=== PATIENT | female | born 1965 | race Caucasian/White ===

== ENCOUNTER → 2016-11-22 | Outpatient (CLI) | payer OTHER ==
--- NOTE | 2016-11-22 14:41 | MM ---
Reason for exam: additional evaluation requested from prior study. Last mammogram was performed 1 year and 6 months ago. History: Patient is postmenopausal. Family history of breast cancer in aunt at age 67. Benign right mammotome panel of the right breast, September 09, 2006. Excisional biopsy of the left breast, 1979. Took hormonal contraceptives for 3 years beginning at age 18. Physical Findings: Nurse did not find any significant physical abnormalities on exam. MG Diagnostic Mammo w CAD LUISA Bilateral CC and MLO view(s) were taken. Prior study comparison: May 10, 2015, bilateral MG diagnostic mammo w CAD LUISA. February 11, 2012, bilateral digital screening mammo w/CAD. The breast tissue is heterogeneously dense. This may lower the sensitivity of mammography. Finding: There are stable diffuse/scattered calcifications. There is no discrete abnormality including area of concern. No significant changes in finding since May 10, 2015 and February 11, 2012. These results were verbally communicated with the patient and result sheet given to the patient on 11/22/16. ASSESSMENT: Benign, BI-RAD 2 RECOMMENDATION: Routine screening mammogram of both breasts in 1 year.
== END | disposition home or self-care (01) ==
LOC: RADMAMWWP 12:49
PROVIDERS: ATTEND Family Medicine
DX: R92.1 Mammographic calcification found on diagnostic imaging of breast (principal)

== ENCOUNTER 2017-12-26 17:11 | Emergency (ER) | payer BC, OTHER ==
[2017-12-26 17:42] VITALS: RESP 18
[2017-12-26] MEDS ORDERED: SODIUM CHLORIDE 0.9% 500 ML IV STA (17:55)
[2017-12-26 18:42] LABS: Basophils % (A) 1 %; Eosinophils # (A) 0.1 k/uL (0-0.7); Eosinophils % (A) 2 %; HCT 39.6 % (34.0-46.0); HGB 13.8 gm/dL (11.4-16.0); Lymphocytes # (A) 1.6 k/uL (1.0-4.8); Lymphocytes % (A) 30 %; MCH 33.4 pg (25.0-35.0); MCHC 34.8 g/dL (31.0-37.0); MCV 95.9 fL (80.0-100.0); Mean Platelet Volume 6.4; Monocytes # (A) 0.3 k/uL (0-1.0); Monocytes % (A) 7 %; Neutrophils # (A) 3.1 k/uL (1.3-7.7); Neutrophils % (A) 59 %; Platelet Count 321 k/uL (150-450); RBC 4.13 m/uL (3.80-5.40); RDW 12.8 % (11.5-15.5); WBC 5.3 k/uL (3.8-10.6)
[2017-12-26 18:46] LABS: Appearance,Urine Clear (Clear); Bacteria,Urine Rare /hpf; Bilirubin,Urine Negative (Negative); Blood,Urine Moderate (Negative); Color,Urine Yellow; Glucose,Urine (UA) Negative (Negative); Ketones,Urine Negative (Negative); Leukocyte Esterase,Urine Negative (Negative); Mucus,Urine Rare /hpf; Nitrite,Urine Negative (Negative); Protein,Urine Negative (Negative); RBC,Urine 14 /hpf (0-5); Specific Gravity,Urine 1.017 (1.001-1.035); Squamous Epithelial Cell,Urine 3 /hpf (0-4); Urobilinogen,Urine <2.0 mg/dL (<2.0); WBC,Urine 2 /hpf (0-5)
[2017-12-26 18:50] LABS: ALT 27 U/L (9-52); AST 21 U/L (14-36); Albumin 4.1 g/dL (3.5-5.0); Alkaline Phosphatase 85 U/L (38-126); Amylase 45 U/L (30-110); Anion Gap 9 mmol/L; Blood Urea Nitrogen 14 mg/dL (7-17); Calcium 9.8 mg/dL (8.4-10.2); Carbon Dioxide 28 mmol/L (22-30); Chloride 103 mmol/L (98-107); Glucose 92 mg/dL (74-99); Lipase 124 U/L (23-300); Potassium 4.2 mmol/L (3.5-5.1); Sodium 140 mmol/L (137-145); Total Bilirubin 0.4 mg/dL (0.2-1.3); Total Protein 6.4 g/dL (6.3-8.2)
--- NOTE | 2017-12-26 19:13 | ED ---
Abdominal Pain HPI - General Chief Complaint: Abdominal Pain Stated Complaint: Side Abd Pain to shoulder Time Seen by Provider: 12/26/17 17:55 Source: patient, RN notes reviewed Mode of arrival: ambulatory Limitations: no limitations - History of Present Illness Initial Comments: 52-year-old female presents emergency Department chief complaint of right-sided abdominal pain, right flank pain. Patient states started complaints as well as gun worse. He states he states initially started in her right shoulder region but has located now to right side of her abdomen right flank. She states it hurts to sit forward or lay back. She states it's better at rest. Denies any trauma. She states that she has no association with food. She has no history of pain some redness. Denies any shortness of breath, headache, dizziness. Patient denies any dysuria, hematuria, vaginal bleeding or vaginal discharge. She did try taking some [id number] medication did have some relief. - Related Data Home Medications Medication Instructions Recorded Confirmed Atorvastatin [Lipitor] 40 mg PO DAILY 12/26/17 12/26/17 Cholecalciferol [Vitamin D3] 3,000 unit PO DAILY 12/26/17 12/26/17 Citalopram Hydrobromide [CeleXA] 40 mg PO DAILY 12/26/17 12/26/17 buPROPion [Wellbutrin] 75 mg PO DAILY 12/26/17 12/26/17 Previous Rx's Medication Instructions Recorded Ibuprofen [Motrin] 600 mg PO Q8HR PRN #30 tab 12/26/17 traMADol HCl [Ultram] 50 mg PO Q6H PRN #20 tab 12/26/17 Allergies Allergy/AdvReac Type Severity Reaction Status Date / Time No Known Allergies Allergy Verified 12/26/17 18:21 Review of Systems ROS Statement: Those systems with pertinent positive or pertinent negative responses have been documented in the HPI. ROS Other: All systems not noted in ROS Statement are negative. Past Medical History Past Medical History: Hyperlipidemia History of Any Multi-Drug Resistant Organisms: None Reported Past Surgical History: Orthopedic Surgery, Tonsillectomy Past Psychological History: Anxiety, Depression Smoking Status: Current every day smoker Past Alcohol Use History: Occasional Past Drug Use History: None Reported General Exam Limitations: no limitations General appearance: alert, in no apparent distress Head exam: Present: atraumatic, normocephalic, normal inspection Respiratory exam: Present: normal lung sounds bilaterally. Absent: respiratory distress, wheezes, rales, rhonchi, stridor, chest wall tenderness Cardiovascular Exam: Present: regular rate, normal rhythm, normal heart sounds. Absent: systolic murmur, diastolic murmur, rubs, gallop, clicks GI/Abdominal exam: Present: soft, tenderness (mild right sided, right flank), normal bowel sounds. Absent: distended, guarding, rebound, rigid Back exam: Present: CVA tenderness (R) (minimal). Absent: CVA tenderness (L) Skin exam: Present: warm, dry, intact, normal color. Absent: rash Course Vital Signs 12/26/17 17:39 Temperature 99 F Pulse Rate 80 Respiratory 18 Rate Blood Pressure 121/79 O2 Sat by Pulse 98 Oximetry Medical Decision Making - Medical Decision Making 52-year-old female presented for right flank pain. Patient's father had hematuria most likely from a kidney stones time. Patient's pain is well- controlled. Patient had lab work, x-ray, WHICH FROM UNREMARKABLE. PATIENT WILL BE DISCHARGED WITH PAIN MEDICATION RETURN PARAMETERS WERE DISCUSSED. PATIENT WILL FOLLOW-UP WITH UROLOGY for RECHECK. - Lab Data Result diagrams: 12/26/17 18:20 12/26/17 18:20 Lab Results 12/26/17 12/26/17 12/26/17 Range/Units 18:20 18:20 18:20 WBC 5.3 (3.8-10.6) k/uL RBC 4.13 (3.80-5.40) m/uL Hgb 13.8 (11.4-16.0) gm/dL Hct 39.6 (34.0-46.0) % MCV 95.9 (80.0-100.0) fL MCH 33.4 (25.0-35.0) pg MCHC 34.8 (31.0-37.0) g/dL RDW 12.8 (11.5-15.5) % Plt Count 321 (150-450) k/uL Neutrophils % 59 % Lymphocytes % 30 % Monocytes % 7 % Eosinophils % 2 % Basophils % 1 % Neutrophils # 3.1 (1.3-7.7) k/uL Lymphocytes # 1.6 (1.0-4.8) k/uL Monocytes # 0.3 (0-1.0) k/uL Eosinophils # 0.1 (0-0.7) k/uL Basophils # 0.0 (0-0.2) k/uL D-Dimer 0.29 (<0.60) mg/L FEU Sodium 140 (137-145) mmol/L Potassium 4.2 (3.5-5.1) mmol/L Chloride 103 (98-107) mmol/L Carbon Dioxide 28 (22-30) mmol/L Anion Gap 9 mmol/L BUN 14 (7-17) mg/dL Creatinine 0.68 (0.52-1.04) mg/dL Est GFR (CKD-EPI)AfAm >90 (>60 ml/min/1.73 sqM) Est GFR (CKD-EPI)NonAf >90 (>60 ml/min/1.73 sqM) Glucose 92 (74-99) mg/dL Calcium 9.8 (8.4-10.2) mg/dL Total Bilirubin 0.4 (0.2-1.3) mg/dL AST 21 (14-36) U/L ALT 27 (9-52) U/L Alkaline Phosphatase 85 (38-126) U/L Troponin I (0.000-0.034) ng/mL Total Protein 6.4 (6.3-8.2) g/dL Albumin 4.1 (3.5-5.0) g/dL Amylase 45 (30-110) U/L Lipase 124 (23-300) U/L Urine Color Urine Appearance (Clear) Urine pH (5.0-8.0) Ur Specific [place] (1.001-1.035) Urine Protein (Negative) Urine Glucose (UA) (Negative) Urine Ketones (Negative) Urine Blood (Negative) Urine Nitrite (Negative) Urine Bilirubin (Negative) Urine Urobilinogen (<2.0) mg/dL Ur Leukocyte Esterase (Negative) Urine RBC (0-5) /hpf Urine WBC (0-5) /hpf Ur Squamous Epith Cells (0-4) /hpf Urine Bacteria (None) /hpf Urine Mucus (None) /hpf 12/26/17 12/26/17 Range/Units 18:20 18:30 WBC (3.8-10.6) k/uL RBC (3.80-5.40) m/uL Hgb (11.4-16.0) gm/dL Hct (34.0-46.0) % MCV (80.0-100.0) fL MCH (25.0-35.0) pg MCHC (31.0-37.0) g/dL RDW (11.5-15.5) % Plt Count (150-450) k/uL Neutrophils % % Lymphocytes % % Monocytes % % Eosinophils % % Basophils % % Neutrophils # (1.3-7.7) k/uL Lymphocytes # (1.0-4.8) k/uL Monocytes # (0-1.0) k/uL Eosinophils # (0-0.7) k/uL Basophils # (0-0.2) k/uL D-Dimer (<0.60) mg/L FEU Sodium (137-145) mmol/L Potassium (3.5-5.1) mmol/L Chloride (98-107) mmol/L Carbon Dioxide (22-30) mmol/L Anion Gap mmol/L BUN (7-17) mg/dL Creatinine (0.52-1.04) mg/dL Est GFR (CKD-EPI)AfAm (>60 ml/min/1.73 sqM) Est GFR (CKD-EPI)NonAf (>60 ml/min/1.73 sqM) Glucose (74-99) mg/dL Calcium (8.4-10.2) mg/dL Total Bilirubin (0.2-1.3) mg/dL AST (14-36) U/L ALT (9-52) U/L Alkaline Phosphatase (38-126) U/L Troponin I <0.012 (0.000-0.034) ng/mL Total Protein (6.3-8.2) g/dL Albumin (3.5-5.0) g/dL Amylase (30-110) U/L Lipase (23-300) U/L Urine Color Yellow Urine Appearance Clear (Clear) Urine pH 6.0 (5.0-8.0) Ur Specific [place] 1.017 (1.001-1.035) Urine Protein Negative (Negative) Urine Glucose (UA) Negative (Negative) Urine Ketones Negative (Negative) Urine Blood Moderate H (Negative) Urine Nitrite Negative (Negative) Urine Bilirubin Negative (Negative) Urine Urobilinogen <2.0 (<2.0) mg/dL Ur Leukocyte Esterase Negative (Negative) Urine RBC 14 H (0-5) /hpf Urine WBC 2 (0-5) /hpf Ur Squamous Epith Cells 3 (0-4) /hpf Urine Bacteria Rare H (None) /hpf Urine Mucus Rare H (None) /hpf Disposition Clinical Impression: Right flank pain, Hematuria Disposition: HOME SELF-CARE Condition: Stable Instructions: Flank Pain (ED), Hematuria (ED) Additional Instructions: Please return to the Emergency Department if symptoms worsen or any other concerns. Prescriptions: Ibuprofen [Motrin] 600 mg PO Q8HR PRN #30 tab PRN Reason: Pain traMADol HCl [Ultram] 50 mg PO Q6H PRN #20 tab PRN Reason: Pain Referrals: Juan Gutiérrez MD [Primary Care Provider] - 1-2 days Leon Tavera MD [STAFF PHYSICIAN] - 1-2 days Time of Disposition: 20:21
--- NOTE | 2017-12-26 19:36 | XR ---
EXAMINATION TYPE: XR KUB DATE OF EXAM: 12/26/2017 COMPARISON: NONE INDICATION: Abdominal pain TECHNIQUE: Single view abdomen upright view FINDINGS: Nonspecific bowel gas is present. Air is within the colon. Psoas margins are normal. No organomegaly is present. No free air is evident. No differential air-fluid levels are present. IMPRESSION: 1. Nonspecific abdomen
--- NOTE | 2017-12-26 20:13 | US ---
EXAMINATION TYPE: US abdomen limited DATE OF EXAM: 12/26/2017 COMPARISON: NONE CLINICAL HISTORY: Pain. RUQ pain EXAM MEASUREMENTS: Liver Length: 15.1 cm Gallbladder Wall: 0.3 cm CBD: 0.4 cm Right Kidney: 9.8 x 5.3 x 4.8 cm Pancreas: Tail obscured by overlying bowel gas Liver: wnl Gallbladder: wnl Evidence for sonographic Head's sign: No CBD: wnl Right Kidney: wnl IMPRESSION: 1. Normal right upper quadrant ultrasound
[2017-12-26 20:39] VITALS: BP 119/74; PULSE 63; TEMP 98.3
== END 2017-12-26 20:39 | disposition home or self-care (01) ==
LOC: EC 17:11
DX: R10.9 Unspecified abdominal pain (principal); R31.9 Hematuria, unspecified; E78.5 Hyperlipidemia, unspecified; F32.9 Major depressive disorder, single episode, unspecified; F41.9 Anxiety disorder, unspecified; F17.200 Nicotine dependence, unspecified, uncomplicated; Z79.899 Other long term (current) drug therapy
CPT/HCPCS: 36415; 74018; 76705; 80053; 81001; 82150; 83690; 84484; 85025; 85379; 96360; 99284

== ENCOUNTER → 2018-05-12 | Outpatient (CLI) | payer BC ==
[2018-05-12 12:15] LABS: Basophils # (A) 0.1 k/uL (0-0.2); Basophils % (A) 1 %; Eosinophils # (A) 0.2 k/uL (0-0.7); Eosinophils % (A) 2 %; HCT 47.8 % (34.0-46.0); HGB 15.4 gm/dL (11.4-16.0); Lymphocytes % (A) 26 %; MCH 32.4 pg (25.0-35.0); MCHC 32.1 g/dL (31.0-37.0); Monocytes # (A) 0.5 k/uL (0-1.0); Monocytes % (A) 6 %; Neutrophils # (A) 4.8 k/uL (1.3-7.7); Neutrophils % (A) 63 %; Platelet Count 316 k/uL (150-450); RBC 4.73 m/uL (3.80-5.40); RDW 12.9 % (11.5-15.5); WBC 7.6 k/uL (3.8-10.6)
[2018-05-12 12:39] LABS: ALT 31 U/L (9-52); AST 21 U/L (14-36); Albumin 4.2 g/dL (3.5-5.0); Alkaline Phosphatase 85 U/L (38-126); Anion Gap 6 mmol/L; Blood Urea Nitrogen 13 mg/dL (7-17); Calcium 9.4 mg/dL (8.4-10.2); Carbon Dioxide 26 mmol/L (22-30); Chloride 108 mmol/L (98-107); Cholesterol 231 mg/dL (<200); Glucose 102 mg/dL (74-99); HDL Cholesterol 78 mg/dL (40-60); LDL Cholesterol,Calculated 143 mg/dL (0-99); Potassium 4.6 mmol/L (3.5-5.1); Sodium 140 mmol/L (137-145); Total Bilirubin 0.4 mg/dL (0.2-1.3); Total Protein 6.6 g/dL (6.3-8.2); Triglycerides 50 mg/dL (<150)
== END | disposition home or self-care (01) ==
LOC: LABWHC1 11:40
DX: Z00.00 Encounter for general adult medical examination without abnormal findings (principal)
CPT/HCPCS: 36415; 80053; 80061; 82306; 84443; 85025

== ENCOUNTER → 2019-01-22 | Outpatient (CLI) | payer OTHER ==
--- NOTE | 2019-01-22 15:43 | XR ---
EXAMINATION TYPE: XR knee complete LT DATE OF EXAM: 01/22/2019 CLINICAL HISTORY: Left knee pain after twisting injury TECHNIQUE: Three views of the left knee are obtained. COMPARISON: None. FINDINGS: There is no acute fracture/dislocation evident in left knee. The tri-compartment joint de monstrate very small tricompartmental marginal osteophytes. The overlying soft tissue appears unremar kable. Incidental note is made of a fabella. Well-corticated density smoothly marginated focus is see n overlying the extensor mechanism and could relate to sequela of prior injury or phlebolith. Small s uprapatellar joint effusion is present. IMPRESSION: There is no acute fracture or dislocation in the left knee. Small suprapatellar joint ef fusion. Mild tricompartmental arthropathy, and well-corticated density overlying the extensor mechani sm that may represent sequela of prior injury or phlebolith.
== END | disposition home or self-care (01) ==
LOC: RADXRMAIN 15:20
PROVIDERS: ATTEND Emergency Medicine
DX: M85.88 Other specified disorders of bone density and structure, other site (principal); M17.12 Unilateral primary osteoarthritis, left knee

== ENCOUNTER → 2019-02-04 | Outpatient (CLI) | payer BC ==
--- NOTE | 2019-02-04 15:04 | US ---
EXAMINATION TYPE: US venous doppler duplex LE LT DATE OF EXAM: 02/04/2019 1:03 PM COMPARISON: NONE CLINICAL HISTORY: left lower ext pain [id number] M79.65. SIDE PERFORMED: Left TECHNIQUE: The lower extremity deep venous system is examined utilizing real time linear array sonog cathy with graded compression, doppler sonography and color-flow sonography. VESSELS IMAGED: External Iliac Vein (EIV) Common Femoral Vein Deep Femoral Vein Greater Saphenous Vein * Femoral Vein Popliteal Vein Small Saphenous Vein * Proximal Calf Veins (* superficial vessels) Left Leg: Negative for DVT Grayscale, color doppler, spectral doppler imaging performed of the deep veins of the left lower extr emity. There is normal flow, compressibility, vascular waveforms. IMPRESSION: No ultrasound evidence for acute DVT in the left lower extremity.
== END | disposition home or self-care (01) ==
LOC: RADUSWWP 12:14
PROVIDERS: ATTEND Emergency Medicine
DX: S83.92XD Sprain of unspecified site of left knee, subsequent encounter (principal)

== ENCOUNTER → 2019-02-23 | Outpatient (CLI) | payer BC ==
--- NOTE | 2019-02-23 09:54 | BD ---
EXAMINATION TYPE: Axial Bone Density DATE OF EXAM: 02/23/2019 COMPARISON: Baseline exam. CLINICAL HISTORY: Postmenopausal female. Osteoporosis screening. Height: 67.5 IN Weight: 178 LBS FRAX RISK QUESTIONS: Secondary Osteoporosis: Current Tobacco Use: YES RISK FACTORS HISTORY OF: Family History of Osteoporosis: YES MOTHER Active: LIMITED Diet low in dairy products/other sources of calcium: YES Postmenopausal woman: AGE 50 Take estrogen and/or progesterone medications: NOT NOW How long: TOOK CONTROL FOR 3 YEARS MEDICATIONS: Additional Medications: LIPITOR, WELLBUTRIN, CELEXA, ADDERALL EXAM MEASUREMENTS: Bone mineral densitometry was performed using the [employer] System. Bone mineral density as measured about the Lumbar spine is: ----- L1-L4(G/cm2): 1.181 T Score Values are as follows: ----- L2: 0.0 ----- L3: -0.4 ----- L4: 0.9 ----- L1-L4: 0.0 Bone mineral density BASELINE Bone mineral density about the R hip (g/cm2): 0.989 Bone mineral density about the L hip (g/cm2): 0.960 T Score values are as follows: -----R Neck: -0.4 -----L Neck: -0.6 -----R Total: -0.6 -----L Total: -0.5 Bone mineral density BASELINE IMPRESSION: Normal (Values between +1 and -1 indicate normal bone mass). Consider repeating this study in 5 year s or sooner if there is some new clinical indication. NOTE: T-SCORE=SD OF THE YOUNG ADULT MEAN.
--- NOTE | 2019-02-24 13:50 | MM ---
Reason for exam: screening (asymptomatic). Last mammogram was performed 2 years and 3 months ago. History: Patient is postmenopausal. Family history of breast cancer in aunt at age 67. Benign right mammotome panel of the right breast, September 09, 2006. Excisional biopsy of the left breast, 1979. Took hormonal contraceptives for 3 years beginning at age 18. Physical Findings: A clinical breast exam by your physician is recommended on an annual basis and results should be correlated with mammographic findings. MG 3D Screening Mammo W/Cad Bilateral CC and MLO view(s) were taken. Prior study comparison: November 22, 2016, bilateral MG diagnostic mammo w CAD LUISA. May 10, 2015, bilateral MG diagnostic mammo w CAD LUISA. The breast tissue is heterogeneously dense. This may lower the sensitivity of mammography. There are similar benign appearing bilateral calcifications. No suspicious abnormality. Right biopsy marker noted. No significant changes when compared with prior studies. ASSESSMENT: Benign, BI-RAD 2 RECOMMENDATION: Routine screening mammogram of both breasts in 1 year.
== END | disposition home or self-care (01) ==
LOC: RADMAMWWP 07:50
PROVIDERS: ATTEND Obstetrics & Gynecology
DX: Z12.31 Encounter for screening mammogram for malignant neoplasm of breast (principal); N95.1 Menopausal and female climacteric states; Z80.3 Family history of malignant neoplasm of breast
CPT/HCPCS: 77063; 77067; 77080

== ENCOUNTER → 2019-02-23 | Outpatient (CLI) | payer OTHER ==
--- NOTE | 2019-02-23 08:02 | MR ---
EXAMINATION TYPE: MR knee LT wo con DATE OF EXAM: 02/23/2019 COMPARISON: Left knee x-ray January 22, 2019. HISTORY: Left knee pain, sprain injury. TECHNIQUE: Multiplanar, multisequence images of the knee is performed without IV contrast. FINDINGS: MEDIAL MENISCUS: Anterior and posterior horns are intact without tear. LATERAL MENISCUS: Anterior and posterior horns are intact without tear. CRUCIATE LIGAMENTS: The anterior and posterior cruciate ligaments are intact and unremarkable. COLLATERAL LIGAMENTS: The medial collateral ligament is intact and unremarkable. Lateral collateral l igament complex shows marked increased signal surrounding the deeper aspects extending posteriorly. EXTENSOR MECHANISM: Visualized quadriceps and patellar tendons are intact. EFFUSION: There is small to moderate-sized suprapatellar joint effusion extending laterally. POPLITEAL CYST: There is small to moderate-sized popliteal/petersen cyst measuring 4.8 cm long axis sagi ttal image 24. TRICOMPARTMENT SPACES: There is mild to moderate tricompartment joint space loss without significant spurring. CARTILAGE: Some chondromalacia patella is present with fissuring of posterior patellar articular cart ilage. BONE MARROW SIGNAL: Large area of heterogeneous increased T2 signal consistent with osseous contusion is involving the entire distal lateral femoral meta-epiphysis and condyle more prominent posteriorly without suspicious low T1 signal to suggest radio occult fracture. Area of involvement is roughly 5 x 5 x 4 cm transversely sagittal image 13 and coronal image 18. OTHER: No additional significant abnormality is appreciated. IMPRESSION: 1. Large area of osseous contusion involving significant portion of distal lateral femoral meta-epiph ysis and condyle without discrete fracture. 2. Mild to moderate LCL complex sprain injury without tear. 3. Small moderate size suprapatellar joint effusion. 4. Small to moderate-sized popliteal cyst. 5. Mild to moderate tricompartment degenerative changes most prominent patellofemoral compartment.
== END ==
LOC: RADMRIMAIN 07:11
PROVIDERS: ATTEND Emergency Medicine
DX: S83.422A Sprain of lateral collateral ligament of left knee, initial encounter (principal); M71.22 Synovial cyst of popliteal space [Baker], left knee; M17.12 Unilateral primary osteoarthritis, left knee

== ENCOUNTER 2020-05-07 11:54 | Emergency (ER) | payer BC, OTHER ==
[2020-05-07 11:59] VITALS: RESP 18
[2020-05-07] MEDS ORDERED: ACETAMINOPHEN TAB 500 MG TAB PO STA (12:25)
--- NOTE | 2020-05-07 12:29 | ED ---
Fever HPI - General Chief Complaint: Fever Stated Complaint: Fever,Headache Time Seen by Provider: 05/07/20 12:18 Source: patient Mode of arrival: ambulatory Limitations: no limitations - History of Present Illness Initial Comments: Patient is a 54-year-old female presenting to the emergency department with a chief complaint of fever and cough. Patient states symptoms began yesterday. Patient reports the cough seems to be nonproductive in nature. She also has a sore throat and clear bilateral rhinorrhea but denies any otalgia. States she developed a fever yesterday but did not take any medication for it. She also reports a past week she developed increased urgency and frequency but no dysuria. She denies any hematuria, hematochezia or melena. Does report some suprapubic discomfort and states this feels like a UTI. She denies any nausea vomiting diarrhea. She is a smoker but no history of COPD or asthma. - Related Data Home Medications Medication Instructions Recorded Confirmed Atorvastatin [Lipitor] 40 mg PO DAILY 12/26/17 12/26/17 Cholecalciferol [Vitamin D3] 3,000 unit PO DAILY 12/26/17 12/26/17 Citalopram Hydrobromide [CeleXA] 40 mg PO DAILY 12/26/17 12/26/17 buPROPion [Wellbutrin] 75 mg PO DAILY 12/26/17 12/26/17 Previous Rx's Medication Instructions Recorded Ibuprofen [Motrin] 600 mg PO Q8HR PRN #30 tab 12/26/17 traMADol HCl [Ultram] 50 mg PO Q6H PRN #20 tab 12/26/17 Cephalexin [Keflex] 500 mg PO Q6HR #40 cap 05/07/20 Allergies Allergy/AdvReac Type Severity Reaction Status Date / Time No Known Allergies Allergy Verified 05/07/20 11:59 Review of Systems ROS Statement: Those systems with pertinent positive or pertinent negative responses have been documented in the HPI. ROS Other: All systems not noted in ROS Statement are negative. Past Medical History Past Medical History: Hyperlipidemia History of Any Multi-Drug Resistant Organisms: None Reported Past Surgical History: Orthopedic Surgery, Tonsillectomy Past Psychological History: Anxiety, Depression Smoking Status: Current every day smoker Past Alcohol Use History: Occasional Past Drug Use History: None Reported General Exam Limitations: no limitations General appearance: alert, in no apparent distress Head exam: Present: atraumatic, normocephalic, normal inspection Eye exam: Present: normal appearance, PERRL, EOMI Pupils: Present: normal accommodation ENT exam: Present: normal exam, normal oropharynx, mucous membranes moist Neck exam: Present: normal inspection, full ROM. Absent: tenderness Respiratory exam: Present: normal lung sounds bilaterally. Absent: respiratory distress, wheezes, rales, rhonchi, stridor, chest wall tenderness Cardiovascular Exam: Present: regular rate, normal rhythm, normal heart sounds GI/Abdominal exam: Present: soft, tenderness (Mild suprapubic tenderness). Absent: distended Extremities exam: Present: normal inspection, full ROM. Absent: tenderness Back exam: Present: normal inspection, full ROM, CVA tenderness (R) (Mild) Neurological exam: Present: alert, oriented X3 Psychiatric exam: Present: normal affect, normal mood Skin exam: Present: warm, dry, intact, normal color Course Vital Signs 05/07/20 11:55 Temperature 100.0 F H Pulse Rate 90 Respiratory 18 Rate Blood Pressure 126/82 O2 Sat by Pulse 98 Oximetry Medical Decision Making - Medical Decision Making Patient is a 54-year-old female presenting to the emergency room with chief complaint of cough and fever. Patient is having a mild fever. She has not taken any antipyretics. Patient was given acetaminophen. She is a smoker and is concerned for Covid. covid-19 testing pending. Chest x-ray is unremarkable. Neck exam she did have mild suprapubic discomfort which she did state he feels like a UTI. UA does reveal elevated leukocyte esterase and white blood cells. On exam she did have mild right CVA. Patient missed Rocephin in the ED. Will be discharged with Keflex. Patient is otherwise well-appearing with no other significant amount of back pain, abdominal pain. She is tolerating orals well. She was advised to follow with the primary care physician. Strict return parameters were thoroughly discussed the patient is understanding and agreeable. She was advised to self isolate until the Covid testing has resolved. She was also advised to take only Tylenol for fever. Case discussed with physician. - Lab Data Lab Results 05/07/20 Range/Units 12:36 Urine Color Yellow Urine Appearance Cloudy H (Clear) Urine pH 6.0 (5.0-8.0) Ur Specific [place] 1.010 (1.001-1.035) Urine Protein 1+ H (Negative) Urine Glucose (UA) Negative (Negative) Urine Ketones Negative (Negative) Urine Blood Large (Negative) Urine Nitrite Negative (Negative) Urine Bilirubin Negative (Negative) Urine Urobilinogen <2.0 (<2.0) mg/dL Ur Leukocyte Esterase Large (Negative) Urine RBC 20 H (0-5) /hpf Urine WBC 150 H (0-5) /hpf Urine WBC Clumps Few H (None) /hpf Ur Squamous Epith Cells 1 (0-4) /hpf Urine Bacteria Occasional H (None) /hpf Urine Mucus Rare H (None) /hpf Disposition Clinical Impression: Cough, Fever, Urinary tract infection Disposition: HOME SELF-CARE Condition: Stable Instructions (If sedation given, give patient instructions): Urinary Tract Infection in Women (ED) Additional Instructions: Take prescribed medication as directed. Follow up with her primary care physician. Return to emergency department if symptoms worsen. Prescriptions: Cephalexin [Keflex] 500 mg PO Q6HR #40 cap Is patient prescribed a controlled substance at d/c from ED?: No Referrals: Madison Richter MD [Primary Care Provider] - 1-2 days Time of Disposition: 13:36
--- NOTE | 2020-05-07 12:53 | XR ---
EXAMINATION TYPE: XR chest 2V DATE OF EXAM: 05/07/2020 COMPARISON: NONE HISTORY: Cough and fever. TECHNIQUE: Frontal and lateral views of the chest are obtained. FINDINGS: There is no focal air space opacity, pleural effusion, or pneumothorax seen. The cardiac silhouette size is within normal limits. The osseous structures are intact. IMPRESSION: No suspicious acute pulmonary process.
[2020-05-07 12:54] LABS: Bacteria,Urine Occasional /hpf; Mucus,Urine Rare /hpf; RBC,Urine 20 /hpf (0-5); Squamous Epithelial Cell,Urine 1 /hpf (0-4); WBC,Urine 150 /hpf (0-5)
[2020-05-07 12:58] LABS: Appearance,Urine Cloudy (Clear); Bilirubin,Urine Negative (Negative); Blood,Urine Large (Negative); Color,Urine Yellow; Glucose,Urine (UA) Negative (Negative); Ketones,Urine Negative (Negative); Protein,Urine 1+ (Negative)
[2020-05-07 12:59] LABS: Leukocyte Esterase,Urine Large (Negative); Nitrite,Urine Negative (Negative); Urobilinogen,Urine <2.0 mg/dL (<2.0)
[2020-05-07] MEDS ORDERED: cefTRIAXone 1,000 MG VIAL (IM USE) IM STA (13:34)
[2020-05-07 14:24] VITALS: BP 104/52; PULSE 65; TEMP 98.1
== END 2020-05-07 14:26 | disposition home or self-care (01) ==
LOC: EC 11:54
DX: N39.0 Urinary tract infection, site not specified (principal); B96.29 Other Escherichia coli [E. coli] as the cause of diseases classified elsewhere; J02.9 Acute pharyngitis, unspecified; E78.5 Hyperlipidemia, unspecified; F41.9 Anxiety disorder, unspecified; F32.9 Major depressive disorder, single episode, unspecified; F17.200 Nicotine dependence, unspecified, uncomplicated; Z20.828 Contact with and (suspected) exposure to other viral communicable diseases; Z79.899 Other long term (current) drug therapy
CPT/HCPCS: 81001; 87086; 71046; 96372; 99283; U0003; J0696; 87077; 87186

== ENCOUNTER → 2020-12-22 | Outpatient (CLI) | payer BC ==
--- NOTE | 2020-12-26 10:22 | MM ---
Reason for exam: screening (asymptomatic). Last mammogram was performed 1 year and 10 months ago. History: Patient is postmenopausal. Family history of breast cancer in aunt at age 67 and breast cancer in sister. Benign right mammotome panel of the right breast, September 09, 2006. Excisional biopsy of the left breast, 1979. Took hormonal contraceptives for 3 years beginning at age 18. Physical Findings: A clinical breast exam by your physician is recommended on an annual basis and results should be correlated with mammographic findings. MG Screening Mammo w CAD Bilateral CC and MLO view(s) were taken. Prior study comparison: February 23, 2019, bilateral MG 3d screening mammo w/cad. November 22, 2016, bilateral MG diagnostic mammo w CAD LUISA. The breast tissue is heterogeneously dense. This may lower the sensitivity of mammography. Finding: There are fine, diffuse, segmental calcifications in the upper outer quadrant, posterior middle position of the right breast. Previous mammotome biopsy in the right breast. No significant changes in finding since February 23, 2019 and November 22, 2016. ASSESSMENT: Benign, BI-RAD 2 RECOMMENDATION: Routine screening mammogram of both breasts in 1 year.
== END | disposition home or self-care (01) ==
LOC: RADMAMWWP 09:00
PROVIDERS: ATTEND Family Medicine
DX: Z12.31 Encounter for screening mammogram for malignant neoplasm of breast (principal); Z80.3 Family history of malignant neoplasm of breast; Z78.0 Asymptomatic menopausal state
CPT/HCPCS: 77067

== ENCOUNTER → 2021-12-25 | Outpatient (CLI) | payer BC ==
--- NOTE | 2021-12-26 10:53 | MM ---
Reason for exam: screening (asymptomatic). Last mammogram was performed 1 year ago. History: Patient is postmenopausal. Family history of breast cancer in aunt at age 67 and breast cancer in sister. Benign right mammotome panel of the right breast, September 09, 2006. Excisional biopsy of the left breast, 1979. Took hormonal contraceptives for 3 years beginning at age 18. Physical Findings: A clinical breast exam by your physician is recommended on an annual basis and results should be correlated with mammographic findings. MG Screening Mammo w CAD Bilateral CC and MLO view(s) were taken. Prior study comparison: December 22, 2020, bilateral MG screening mammo w CAD. February 23, 2019, bilateral MG 3d screening mammo w/cad. The breast tissue is heterogeneously dense. This may lower the sensitivity of mammography. Finding: There are stable, fine, regional calcifications in the upper outer quadrant of the right breast. Previous mammotome biopsy in the right breast. No significant changes in finding since December 22, 2020 and February 23, 2019. ASSESSMENT: Benign, BI-RAD 2 RECOMMENDATION: Routine screening mammogram of both breasts in 1 year.
== END | disposition home or self-care (01) ==
LOC: RADMAMWWP 11:12
PROVIDERS: ATTEND Obstetrics & Gynecology Obstetrics
DX: Z12.31 Encounter for screening mammogram for malignant neoplasm of breast (principal); R92.1 Mammographic calcification found on diagnostic imaging of breast; Z80.3 Family history of malignant neoplasm of breast; Z78.0 Asymptomatic menopausal state
CPT/HCPCS: 77067

== ENCOUNTER → 2022-12-28 | Outpatient (CLI) | payer BC ==
--- NOTE | 2022-12-31 16:31 | MM ---
Reason for Exam: Screening (asymptomatic). Last screening mammogram was performed 12 month(s) ago. Patient History: Menarche at age 13. First Full-Term at age 25. Postmenopausal. Hormonal Contraceptives, starting at age 18 for 3 years. 1979, Excisional Biopsy on the Left side. 09/09/2006, Benign Core Biopsy on the right side. Maternal aunt had breast cancer, age 67. Sister had breast cancer. Risk Values: Viki 5 year model risk: 3.8%. NCI Lifetime model risk: 21.4%. Prior Study Comparison: 02/23/2019 Bilateral Screening Mammogram, [facility]. 12/22/2020 Bilateral Screening Mammogram, [facility]. 12/25/2021 Bilateral Screening Mammogram, [facility]. Tissue Density: The breast tissue is heterogeneously dense. This may lower the sensitivity of mammography. Findings: Analyzed By CAD. Pattern appears symmetrical and stable. Multiple stable calcifications are in the upper outer region. Core markers within this region. A few scattered benign punctate calcifications are within the left breast. No significant interval changes are evident. No suspicious groups of microcalcifications, spiculated or lobular masses, architectural distortion or other secondary signs of malignancy are mammographically apparent. Overall Assessment: Benign, BI-RAD 2 Management: Screening Mammogram of both breasts in 1 year. A negative mammogram report should not preclude additional follow up of suspicious palpable abnormalities. Patient should continue monthly self breast exam. A clinical breast exam by your physician is recommended on an annual basis and results should be correlated with mammographic findings. Electronically signed and approved by: Donal Chan D.O. Radiologis
== END | disposition home or self-care (01) ==
LOC: RADMAMWWP 10:15
PROVIDERS: ATTEND Obstetrics & Gynecology Obstetrics
DX: Z12.31 Encounter for screening mammogram for malignant neoplasm of breast (principal); Z78.0 Asymptomatic menopausal state; Z80.3 Family history of malignant neoplasm of breast
CPT/HCPCS: 77063; 77067

== ENCOUNTER 2023-07-31 22:01 | Emergency (ER) | payer OTHER, BC ==
--- NOTE | 2023-07-31 22:23 | ED ---
General Adult HPI - General Source: patient, RN notes reviewed <Kiara Velarde - Last Filed: 07/31/23 22:21> <Yuan Jones - Last Filed: 08/01/23 04:04> - General Stated complaint: IHS - Left knee, Left Elbow, Left Rib Injuries - History of Present Illness Initial comments: 57-year-old female presents emergency department chief complaint of left-sided rib and elbow pain. Patient states that she took a fall at work today landing on her left side. She states that she is having pain in her left-sided ribs when she breathes or moves. She also reports pain in her left elbow. She states that she put sports tape on it because it began to swell. (Kiara Velarde) 57-year-old female presenting for evaluation after a trip and fall. Patient was at work when she tripped and fell onto her left side. She is complaining of pain mainly to the left-sided ribs and left elbow. She is having some soreness in the left knee but is able to ambulate and bear weight. The patient has worse izaiah pain with deep breaths. She is unsure if she hit her head, no loss of consciousness or blood thinners. No shortness of breath. No palpitations. No abdominal pain, nausea, vomiting. No numbness, tingling, weakness. (Yuan Jones) - Related Data Home Medications Medication Instructions Recorded Confirmed Atorvastatin [Lipitor] 40 mg PO DAILY 12/26/17 12/26/17 Cholecalciferol [Vitamin D3] 3,000 unit PO DAILY 12/26/17 12/26/17 Citalopram Hydrobromide [CeleXA] 40 mg PO DAILY 12/26/17 12/26/17 buPROPion [Wellbutrin] 75 mg PO DAILY 12/26/17 12/26/17 Previous Rx's Medication Instructions Recorded Ibuprofen [Motrin] 600 mg PO Q8HR PRN #30 tab 12/26/17 traMADol HCl [Ultram] 50 mg PO Q6H PRN #20 tab 12/26/17 Cephalexin [Keflex] 500 mg PO Q6HR #40 cap 05/07/20 Allergies Allergy/AdvReac Type Severity Reaction Status Date / Time No Known Allergies Allergy Verified 07/31/23 22:23 Review of Systems ROS Other: All systems not noted in ROS Statement are negative. <Kiara Velarde - Last Filed: 07/31/23 22:21> ROS Other: All systems not noted in ROS Statement are negative. <Yuan Jones - Last Filed: 08/01/23 04:04> ROS Statement: Those systems with pertinent positive or pertinent negative responses have been documented in the HPI. Past Medical History Past Medical History: Hyperlipidemia History of Any Multi-Drug Resistant Organisms: None Reported Past Surgical History: Orthopedic Surgery, Tonsillectomy Past Psychological History: Anxiety, Depression Smoking Status: Current every day smoker Past Alcohol Use History: Occasional Past Drug Use History: None Reported <Kiara Velarde - Last Filed: 07/31/23 22:21> General Exam <Kiara Velarde - Last Filed: 07/31/23 22:21> Limitations: no limitations General appearance: alert, in no apparent distress Head exam: Present: atraumatic, normocephalic, normal inspection Eye exam: Present: normal appearance, EOMI Neck exam: Present: normal inspection, tenderness (Paraspinal muscle tenderness, no midline tenderness), full ROM Respiratory exam: Present: normal lung sounds bilaterally, chest wall tenderness (Left-sided rib tenderness). Absent: respiratory distress, wheezes, rales, rhonchi, stridor Cardiovascular Exam: Present: regular rate, normal rhythm, normal heart sounds. Absent: systolic murmur, diastolic murmur, rubs, gallop, clicks Neurological exam: Present: alert, oriented X3 Expanded Patient oriented to: Present: person, place, time Speech: Present: fluid speech Cranial nerves: EOM's Intact: Normal Eye Response: (4) open spontaneously Motor Response: (6) obeys commands Verbal Response: (5) oriented [place] Total: 15 Psychiatric exam: Present: normal affect, normal mood Skin exam: Present: warm, dry, intact, normal color. Absent: rash <Yuan Jones - Last Filed: 08/01/23 04:04> - General Exam Comments Initial Comments: Visual Physical Exam Vital signs reviewed General: Well-appearing, nontoxic, no acute distress. Head: Normocephalic, atraumatic Eyes: PERRLA, EOMI ENT: Airway patent Chest: Nonlabored breathing Skin: No visual rash, normal skin tone Neuro: Alert and oriented 3 Musculoskeletal: No gross abnormalities (Kiara Velarde) Course Vital Signs 07/31/23 22:20 Temperature 96.9 F L Pulse Rate 98 Respiratory 18 Rate Blood Pressure 159/95 O2 Sat by Pulse 99 Oximetry Medical Decision Making <Kiara Velarde - Last Filed: 07/31/23 22:21> <Yuan Jones - Last Filed: 08/01/23 04:04> - Medical Decision Making I preformed the quick note portion of this chart. Electronically signed by Kiara Velarde PA-C (Kiara Velarde) Was pt. sent in by a medical professional or institution ([facility], [employer], urgent care, hospital, or jail...) When possible be specific @ -No Did you speak to anyone other than the patient for history (EMS, parent, family, police, friend...)? What history was obtained from this source @ -No Did you review nursing and triage notes (agree or disagree)? Why? @ -I reviewed and agree with nursing and triage notes Were old charts reviewed (outside hosp., previous admission, EMS record, old EKG, old radiological studies, urgent care reports/EKG's, jail records)? Report findings @ -No old charts were reviewed Differential Diagnosis (chest pain, altered mental status, abdominal pain women, abdominal pain men, vaginal bleeding, weakness, fever, dyspnea, syncope, headache, dizziness, GI bleed, back pain, seizure, CVA, palpatations, mental health, musculoskeletal)? @ -Differential Musculoskeletal Muscular strain, contusion, ligament sprain, fracture, arthritis, septic arthritis, bursitis, cellulitis, muscle spasm, nerve compression, DVT, arterial occlusion, herpes zoster, electrolyte abnormality, tumor.... This is not meant to be in all inclusive list EKG interpreted by me (3pts min.). @ -As above X-rays interpreted by me (1pt min.). @ -No acute process seen on left-sided rib x-ray with chest x-ray were elbow x- ray CT interpreted by me (1pt min.). @ -None done U/S interpreted by me (1pt. min.). @ -None done What testing was considered but not performed or refused? (CT, X-rays, U/S, labs)? Why? @ -None What meds were considered but not given or refused? Why? @ -None Did you discuss the management of the patient with other professionals (professionals i.e. , PA, [employer], lab, RT, psych nurse, social insurance specialist, corporate lawyer, teacher, complaint investigations officer, employment case manager)? Give summary @ -No Was smoking cessation discussed for >3mins.? @ -No Was critical care preformed (if so, how long)? @ -No Were there social determinants of health that impacted care today? How? (Homelessness, low income, unemployed, alcoholism, drug addiction, transportation, low edu. Level, literacy, decrease access to med. care, prison, rehab)? @ -No Was there de-escalation of care discussed even if they declined (Discuss DNR or withdrawal of care, Hospice)? DNR status @ -No What co-morbidities impacted this encounter? (DM, HTN, Smoking, COPD, CAD, Cancer, CVA, ARF, Chemo, Hep., AIDS, mental health diagnosis, sleep apnea, morbid obesity)? @ -None Was patient admitted / discharged? Hospital course, mention meds given and route, prescriptions, significant lab abnormalities, going to OR and other pertinent info. @ -57-year-old female presenting for evaluation post fall. Patient understood tripped and fall. No loss of consciousness or blood thinners. She is complaining mainly of left-sided rib and elbow pain. Physical exam was conducted. Negative x-rays. Patient is educated on supportive management at home.Follow-up with PCP. Report back to ER with any new or worsening symptoms. Discussed return parameters and answered all questions. Patient conveyed verbal understanding and agreed to the plan. I discussed this case in detail with my attending Dr. Meehan Undiagnosed new problem with uncertain prognosis? @ -No Drug Therapy requiring intensive monitoring for toxicity (Heparin, Nitro, Insulin, Cardizem)? @ -No Were any procedures done? @ -No Diagnosis/symptom? @ -Rib pain, elbow pain Acute, or Chronic, or Acute on Chronic? @ -Acute Uncomplicated (without systemic symptoms) or Complicated (systemic symptoms)? @ -Uncomplicated Side effects of treatment? @ -No Exacerbation, Progression, or Severe Exacerbation? @ -No Poses a threat to life or bodily function? How? (Chest pain, [place], [place], pneumonia, PE, COPD, DKA, ARF, appy, cholecystitis, CVA, Diverticulitis, Homicidal, Suicidal, threat to staff... and all critical care pts) @ -No (Yuan Jones) Disposition <Kiara Velarde - Last Filed: 07/31/23 22:21> Is patient prescribed a controlled substance at d/c from ED?: No Time of Disposition: 01:43 <Yuan Jones - Last Filed: 08/01/23 04:04> Clinical Impression: Rib pain, Fall Disposition: HOME SELF-CARE Condition: Good Instructions (If sedation given, give patient instructions): Rib Fracture (ED) Additional Instructions: Follow-up with PCP. Report back to ER with any new or worsening symptoms. Take Motrin and Tylenol as needed for pain control. Referrals: Madison Richter MD [Primary Care Provider] - 1-2 days
[2023-07-31 23:31] VITALS: BP 159/95; PULSE 98; RESP 18; TEMP 96.9
--- NOTE | 2023-08-01 01:06 | XR ---
EXAM: XR Left Elbow Complete, 3 or More Views CLINICAL HISTORY: fall TECHNIQUE: Frontal, lateral and oblique views of the left elbow. COMPARISON: No relevant prior studies available. FINDINGS: Bones/joints: Unremarkable. No acute fracture. No dislocation. Soft tissues: No significant overlying soft tissue abnormality. No radiopaque foreign body. IMPRESSION: No acute findings in the left elbow.
--- NOTE | 2023-08-01 01:08 | XR ---
EXAM: XR Left Ribs and AP Chest, 3 or More Views CLINICAL HISTORY: ITS.REASON XR Reason: fall TECHNIQUE: Frontal and oblique views of the left ribs and frontal view of the chest. COMPARISON: No relevant prior studies available. FINDINGS: Lungs: Unremarkable. No consolidation. Pleural space: Unremarkable. No pneumothorax. Heart: Unremarkable. No cardiomegaly. Mediastinum: Unremarkable. Bones/joints: No displaced left rib fracture identified. The remaining osseous structures are intact. IMPRESSION: No displaced left rib fracture identified. No pleural effusion or pneumothorax.
[2023-08-01] MEDS ORDERED: ACETAMINOPHEN TAB 500 MG TAB PO STA (01:43)
[2023-08-01] MEDS ORDERED: IBUPROFEN 800 MG TAB PO STA (01:43)
[2023-08-01] MEDS ORDERED: LIDOCAINE 5% PATCH TOPICAL SCH (09:00)
== END 2023-08-01 02:02 | disposition home or self-care (01) ==
LOC: EC 22:01
DX: R07.81 Pleurodynia (principal); E78.5 Hyperlipidemia, unspecified; F41.9 Anxiety disorder, unspecified; F32.A Depression, unspecified; F17.200 Nicotine dependence, unspecified, uncomplicated; Z79.899 Other long term (current) drug therapy; W01.0XXA Fall on same level from slipping, tripping and stumbling without subsequent striking against object, initial encounter; Y99.0 Civilian activity done for income or pay
CPT/HCPCS: 99283

== ENCOUNTER → 2023-08-01 | Outpatient (CLI) | payer OTHER | END | disposition home or self-care (01) | LOC: RADXRMAIN 14:41 | PROVIDERS: ATTEND Emergency Medicine | DX: Z53.9 Procedure and treatment not carried out, unspecified reason (principal) ==

== ENCOUNTER → 2023-08-01 | Outpatient (CLI) | payer OTHER ==
--- NOTE | 2023-08-01 15:34 | CT ---
EXAMINATION TYPE: CT brain ellyn wo con DATE OF EXAM: 08/01/2023 COMPARISON: None HISTORY: head and neck pain after fall. CT DLP: 1593 mGycm, Automated exposure control for dose reduction was used. CONTRAST: Patient injected with 0 mL of Isovue 370. CT of the brain is performed utilizing 3 mm thick sections through the posterior fossa and 3 mm thick sections through the remaining calvarium. Study is performed within 24 hours of arrival to the hospital. No abnormal hyperdensity is present to suggest an acute intracranial hemorrhage. No mass lesion is evident. No acute infarcts are evident. Ventricles and sulci are appropriate for the patient age. Paranasal sinuses and mastoid air cells within the [id number] are clear. IMPRESSIONS: 1. No acute intracranial process. Follow-up MRI can be performed as clinically indicated. CT cervical spine. COMPARISON: None CT of the cervical spine is performed in the axial plane at 2 mm thick sections. Reconstructed image s in the coronal, and sagittal plane are reviewed on the computer. No acute fractures are evident. Vertebral body alignment is normal. Narrowing of disc height is present through the cervical spine greatest at C5-6. Some posterior endpl ate spurring is present C6-7. Vertebral body heights are preserved. No spinal canal stenosis is evident. Some narrowing of the C5-6 C6-7 foramen is present. IMPRESSION: 1. Degenerative disc changes cervical spine
--- NOTE | 2023-08-01 15:38 | XR ---
EXAMINATION TYPE: XR shoulder complete LT DATE OF EXAM: 08/01/2023 3:34 PM INDICATION: Patient age:Female; 57 years old; Reason for study: [id number]; COMPARISON: None TECHNIQUE: The left shoulder was examined in AP, internally rotated and scapular Y projections. . FINDINGS: No evidence of acute osseous pathology, joint dislocation, or soft tissue swelling. The remaining por tions of the visualized chest are unremarkable. IMPRESSION: No acute osseous pathology.
== END | disposition home or self-care (01) ==
LOC: RADCTMAIN 15:00
PROVIDERS: ATTEND Emergency Medicine
DX: S00.83XA Contusion of other part of head, initial encounter (principal); S13.4XXA Sprain of ligaments of cervical spine, initial encounter; M50.322 Other cervical disc degeneration at C5-C6 level
CPT/HCPCS: 70450; 72125

== ENCOUNTER → 2023-08-08 | Outpatient (CLI) | payer OTHER ==
--- NOTE | 2023-08-08 21:21 | XR ---
EXAMINATION TYPE: XR ribs LT w pa chest xray DATE OF EXAM: 08/08/2023 5:25 PM CLINICAL INDICATION:Female, 57 years old with history of S20.20XA; [facility] COMPARISON: 07/31/2023 TECHNIQUE: XR ribs LT w pa chest xray; Frontal and oblique views of the ribs with frontal chest radio graph. FINDINGS: The patient's hand is obscuring some of the ribs and some of the views. The ribs have a nor mal appearance. No evidence of fracture. Overall, the lungs are clear. The cardiac silhouette is no rmal in size. The remaining osseous structures are intact. IMPRESSION: Patient's hand is in the [id number] which limits evaluation. No acute osseous pathology.
== END | disposition home or self-care (01) ==
LOC: RADXRMAIN 16:59
PROVIDERS: ATTEND Emergency Medicine
DX: S20.20XA Contusion of thorax, unspecified, initial encounter (principal)

== ENCOUNTER → 2023-08-14 | Outpatient (CLI) | payer OTHER ==
--- NOTE | 2023-08-16 12:15 | MR ---
EXAMINATION TYPE: MR brain wo/w con DATE OF EXAM: 08/14/2023 9:25 PM CLINICAL INDICATION:Female, 57 years old with history of S00.83XD, Contusion of head, Headaches, Fell and hit head, COMPARISON: 08/01/2023. TECHNIQUE: Multi planar, multi sequence imaging was performed through the brain including: T1, T2, In version recovery, susceptibility weighted imaging and gradient echo imaging and Diffusion weighted im aging. The patient was then given intravenous contrast and multi planar, T1 fat-saturation images wer e obtained. IV Contrast: 7.5 cc Gadobutrol FINDINGS: The messer-white junctions, ventricular system, basal cisterns appear unremarkable. Diffusion-weighted imaging shows no evidence of restricted diffusion to suggest acute/subacute infarct. Intracranial ar terial flow voids are maintained. Midline structures show no abnormality. Scattered subtle confluent and foci of high T2 signal intensity are seen within the periventricular white matter. The susceptibi lity weighted images do not reveal any evidence for micro-hemorrhage. After administration of gadolin ium, no abnormal enhancement is seen. The bone marrow signal is within normal limits. Paranasal sinuses and mastoid air cells: No significant paranasal sinus disease. Visualized orbits: Orbital contents are intact. IMPRESSION: 1. No evidence of intracranial mass, acute/subacute infarct, or abnormal enhancement. 2. Nonspecific white matter changes, likely related to small vessel ischemic disease.
== END | disposition home or self-care (01) ==
LOC: RADMRIMAIN 20:23
PROVIDERS: ATTEND Emergency Medicine
DX: S00.83XD Contusion of other part of head, subsequent encounter (principal); S13.4XXD Sprain of ligaments of cervical spine, subsequent encounter; S40.012D Contusion of left shoulder, subsequent encounter; S20.20XD Contusion of thorax, unspecified, subsequent encounter; S50.02XD Contusion of left elbow, subsequent encounter; F07.81 Postconcussional syndrome; R90.82 White matter disease, unspecified
CPT/HCPCS: 70553; A9585

== ENCOUNTER → 2023-08-19 | Outpatient (CLI) | payer OTHER ==
--- NOTE | 2023-08-19 11:45 | XR ---
EXAMINATION TYPE: XR elbow complete LT DATE OF EXAM: 08/19/2023 11:22 AM CLINICAL INDICATION:Female, 57 years old with history of S50.02XD; [facility] COMPARISON: None TECHNIQUE: XR elbow complete LT; elbow was examined in AP, lateral, and oblique projections. FINDINGS: No evidence of any acute osseous pathology, joint dislocation, or soft tissue swelling is n oted. No evidence of joint effusion is present. IMPRESSION: No evidence of acute fracture.
== END | disposition home or self-care (01) ==
LOC: RADXRMAIN 11:09
PROVIDERS: ATTEND Emergency Medicine
DX: S50.02XD Contusion of left elbow, subsequent encounter (principal); X58.XXXD Exposure to other specified factors, subsequent encounter

== ENCOUNTER → 2024-01-03 | Outpatient (CLI) | payer BC ==
--- NOTE | 2024-01-06 14:35 | MM ---
Reason for Exam: Screening (asymptomatic). Last screening mammogram was performed 12 month(s) ago. Patient History: Menarche at age 13. First Full-Term at age 25. Postmenopausal. Hormonal Contraceptives, starting at age 18 for 3 years. 1979, Excisional Biopsy on the Left side. 09/09/2006, Benign Core Biopsy on the right side. Maternal aunt had breast cancer, age 67. Sister had breast cancer, age 48. Sister had breast cancer, age 54. Sister tested for BRCA1 outcome was negative. Sister tested for BRCA2 outcome was negative. Risk Values: Viki 5 year model risk: 3.9%. NCI Lifetime model risk: 21.0%. Prior Study Comparison: 12/22/2020 Bilateral Screening Mammogram, [facility]. 12/25/2021 Bilateral Screening Mammogram, [facility]. 12/28/2022 Bilateral MG 3D screening mammo w/cad, [facility]. Tissue Density: There are scattered areas of fibroglandular density. Findings: Analyzed By CAD. Right breast biopsy clip. Right breast: There is no suspicious group of microcalcifications or new suspicious mass. Left breast: There is no suspicious group of microcalcifications or new suspicious mass. Overall Assessment: Benign, BI-RAD 2 Management: Screening Mammogram of both breasts in [address] [facility] will attempt to contact patient to return for supplemental views and ultrasound if indicated. Patient should continue monthly self-breast exams. A clinical breast exam by your physician is recommended on an annual basis. This exam should not preclude additional follow-up of suspicious palpable abnormalities. Note on Viki scores and lifetime risk: 1. A Viki score greater than 3% is considered moderate risk. If this is the case, consider specialist referral to assess eligibility for a risk reducing agent. 2. If overall lifetime risk for the development of breast cancer is 20% or higher, the patient may qualify for future screening with alternating mammogram and breast MRI. Electronically signed and approved by: Tin Pinon DO
== END | disposition home or self-care (01) ==
LOC: RADMAMWWP 11:16
PROVIDERS: ATTEND Family Medicine
DX: Z12.31 Encounter for screening mammogram for malignant neoplasm of breast (principal); Z78.0 Asymptomatic menopausal state; Z80.3 Family history of malignant neoplasm of breast
CPT/HCPCS: 77063; 77067

== ENCOUNTER → 2024-01-16 | Outpatient (CLI) | payer BC ==
[2024-01-16 11:44] VITALS: BP 152/79; PULSE 74; RESP 18; TEMP 98
--- NOTE | 2024-01-16 12:33 | P.SLEEP ---
History of Present Illness DATE: 01/16/2024 CONSULTATION/NEW PATIENT EVALUATION HISTORY OF PRESENT ILLNESS/SLEEP-WAKE EVALUATION: 58-year-old lady had been e valuated in the sleep center for possible obstructive sleep apnea hypopnea syndrome and significant excessive daytime sleepiness. SLEEP SCHEDULE: Usually sleep schedule from 23 AM until 9 AM on working days, patient works on afternoon shift and from 1112 until 9:10 AM on weekends. FALLING ASLEEP: Usually no problems with falling asleep. DURING SLEEP: Patient snores and wakes up from sleep 2 times with nocturia. No history of hypnogogical hallucinations, sleep paralysis, or cataplexy. DURING THE DAY/WAKE STATE: In the morning patient wake up tired, has problems with memory, concentration, irritability, anxiety. [place] sleepiness scale is in a very high range of 18. Usually patient does not take naps. PAST MEDICAL HISTORY: Hypertension, hyperlipidemia, ADHD, headaches after awak enings in the morning grinding teeth. PAST SURGICAL HISTORY: Tonsillectomy, , arthroscopic knee surgery, hernia repair. MEDICATIONS: Please see below. SOCIAL HISTORY: Please see below. FAMILY HISTORY: Positive for sleep apnea, cancer, lung problems, diabetes, thyroid problems. REVIEW OF SYSTEMS: Snoring, awakenings from sleep, significant excessive daytime sleepiness. No fevers. No double vision. No recent chest pain. No shortness of breath. No abdominal pain. No bleeding episodes. No blood in urine. No seizure episodes. PHYSICAL EXAMINATION: GENERAL: A pleasant patient without any distress. VITAL SIGNS: Please see below, weight 180 pounds, BMI 28.0. HEENT: PERRLA, EOMI. Evaluation of oropharynx showed tongue protrudes midline, low position of soft palate Mallampati 2, short distance between soft palate and posterior pharyngeal wall. NECK: Supple. No JVD. Thyroid is not palpable. 15 inches in circumference. LUNGS: Clear to percussion and to auscultation. Good air exchange. No wheezing or rhonchi. HEART: S1, S2 regular. No murmurs, gallops or rubs. ABDOMEN: Soft and nontender. Bowel sounds are present. No organomegaly appreciated. EXTREMITIES: No clubbing or cyanosis. COLLECTION TELLER: Awake, alert, and oriented x3. Cranial nerves 2 to 7 intact. There is no fasciculation or atrophy noted. No focal deficits observed. ASSESSMENT: 1. Snoring, awakenings from sleep with nocturia, short distance between soft palate and posterior pharyngeal wall. Sleepiness during the day. Possible obstructive sleep apnea hypopnea syndrome. 2. Significant excessive daytime sleepiness with [place] Sleepiness Scale 18 while patient is on Adderall for ADHD dictate necessity to include hypersomnia and narcolepsy and differential diagnosis. 3. Hypertension. 4. Hyperlipidemia. 5 history of ADHD on treatment with Adderall XR 30 mg once a day. 6 . Headaches in the morning after awakenings. 7. History of grinding teeth. 8. Status post tonsillectomy. 9 . Status post hernia repair. 10. Status post . 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 PLAN: 1. Home sleep apnea test for evaluation of patient's breathing during sleep. 2. Following plan after reading sleep study. If sleep study will be negative for obstructive sleep apnea hypopnea syndrome patient will need multiple sleep latency test. 3. Preferable position during sleep on the side. 4. No driving if patient feels any sleepiness. Patient is aware of civil and criminal liability for unsafe driving. 5. Sleep hygiene with regular sleep time for at least 7.5-8 hours. 6. Watching weight. Thank you very much for referring this patient for consultation. Sincerely, Ramirez Mcclain MD, PhD, FAASM. Diplomat of [place], Sleep Medicine Board by [employer] Division Operations Specialist of [facility] [place] Past Medical History Past Medical History: Hyperlipidemia, Hypertension Additional Past Medical History / Comment(s): ADHD, BRONCHITIS, HEADACHES, History of Any Multi-Drug Resistant Organisms: None Reported Past Surgical History: Section, Orthopedic Surgery, Tonsillectomy Additional Past Surgical History / Comment(s): R KNEE ARTHROSCOPY, BILATERAL BREAST BIOPSY, UMBILICAL HERNIA Past Psychological History: Anxiety, Depression Smoking Status: Current every day smoker Past Alcohol Use History: Occasional Past Drug Use History: None Reported Medications and Allergies Home Medications Medication Instructions Recorded Confirmed Type Atorvastatin [Lipitor] 40 mg PO DAILY 12/26/17 01/16/24 History Cholecalciferol [Vitamin D3] 3,000 unit PO DAILY 12/26/17 12/26/17 History Citalopram Hydrobromide [CeleXA] 40 mg PO DAILY 04/05/18 04/05/18 History Ibuprofen [Motrin] 600 mg PO Q8HR PRN #30 tab 12/26/17 01/16/24 Rx traMADol HCl [Ultram] 50 mg PO Q6H PRN #20 tab 12/26/17 Rx Cephalexin [Keflex] 500 mg PO Q6HR #40 cap 05/07/20 Rx Dextroamphetamine/Amphetamine 30 mg PO DAILY 01/16/24 01/16/24 History [Adderall Xr 30 mg Capsule] lisinopriL [Zestril] 10 mg PO DAILY 01/16/24 01/16/24 History Allergies Allergy/AdvReac Type Severity Reaction Status Date / Time No Known Allergies Allergy Verified 07/31/23 22:23 Physical Exam Vitals: Vital Signs Temp Pulse Resp BP Pulse Ox 01/16/24 11:30 98.0 F 74 18 152/79 98 Intake and Output 01/15/24 01/16/24 01/16/24 22:59 06:59 14:59 Other: Weight 81.647 kg Sleep Note - Sleep Data ESS Total: 18 - Sleep Note Sleep Note: Temperature: 98.0 F Pulse Rate: 74 Respiratory Rate: 18 Blood Pressure: 152/79 SpO2: 98 Height: 5 ft 7 in Weight: 81.647 kg BMI: Neck Circumference: 15
== END ==
LOC: 3 N SLEEP 10:48
PROVIDERS: ATTEND Internal Medicine
DX: R06.83 Snoring (principal); R35.1 Nocturia; G47.10 Hypersomnia, unspecified; F90.9 Attention-deficit hyperactivity disorder, unspecified type; I10 Essential (primary) hypertension; E78.5 Hyperlipidemia, unspecified; G47.63 Sleep related bruxism; F17.200 Nicotine dependence, unspecified, uncomplicated; R51.9 Headache, unspecified; Z90.89 Acquired absence of other organs; Z98.890 Other specified postprocedural states; Z90.49 Acquired absence of other specified parts of digestive tract; Z79.899 Other long term (current) drug therapy
CPT/HCPCS: 99211

== ENCOUNTER → 2024-02-13 | Outpatient (CLI) | payer BC ==
--- NOTE | 2024-02-19 14:08 | P.PCN ---
Description of Procedure: CLINICAL: A home sleep apnea test has been done for confirmation of possible obstructive sleep apnea-hypopnea syndrome. DESCRIPTION OF PROCEDURE: RESULTS: Recording time was 6 hours 18 minutes. Evaluation time was 6 hours 2 minutes. Evaluation time is sufficient for making conclusion about results of the test. Raw data of sleep recording has been reviewed and is adequate. Respiratory channel showed 4 apneas and 73 hypopneas. Apnea-hypopnea index was 12.8 per hour. Pulse rate in the range between minimum 57, maximum 120, average 76 by computer calculation. Lowest desaturation was 71%. IMPRESSION: 1. Obstructive Sleep Apnea Hypopnea Syndrome in mild range. 2. Hypertension. 3. Very significant excessive daytime sleepiness while patient is on treatment with Adderall for ADHD.. Please see other impressions from consultation. PLAN: 1. The patient will be started on auto-PAP treatment for correction of respiratory abnormallities during sleep. 2. I will see patient for follow up visit to discuss results of the test, evaluate clinical response on treatment with PAP therapy and make any necessary adjustments related to mask fitting, pressure, and humidification. If patient will continue to have symptoms of significant excessive daytime sleepiness while on treatment with CPAP we will consider multiple sleep latency test. 3. Watching weight. 4. Sleep hygiene with regular time in bed for at least 8 hours. 5. No driving if feeling any sleepiness. Thank you very much for allowing me to participate in the management of your patient. Sincerely, Ramirez Mcclain MD, PhD, FAASM Diplomat of [employer] Sleep Medicine Board of [place] [employer] Detective Bureau Chief of [facility] [place]
== END ==
LOC: 3 N SLEEP 10:59
PROVIDERS: ATTEND Internal Medicine
DX: G47.33 Obstructive sleep apnea (adult) (pediatric) (principal); I10 Essential (primary) hypertension; F90.9 Attention-deficit hyperactivity disorder, unspecified type; F17.200 Nicotine dependence, unspecified, uncomplicated; Z79.899 Other long term (current) drug therapy

== ENCOUNTER → 2025-01-22 | Outpatient (CLI) | payer BC ==
--- NOTE | 2025-01-25 08:02 | MM ---
Reason for Exam: Screening (asymptomatic). Last mammogram was performed 1 year(s) and 1 month(s) ago. Patient History: Menarche at age 13. First Full-Term at age 25. Postmenopausal. Hormonal Contraceptives, starting at age 18 for 3 years. 1979, Excisional Biopsy on the Left side. 09/09/2006, Benign Core Biopsy on the right side. Maternal aunt had breast cancer, age 67. Sister had breast cancer, age 48. Sister had breast cancer, age 54. Sister tested for BRCA1 outcome was negative. Sister tested for BRCA2 outcome was negative. Risk Values: Viki 5 year model risk: 4.1%. NCI Lifetime model risk: 20.6%. Prior Study Comparison: 12/25/2021 Bilateral Screening Mammogram, [facility]. 12/28/2022 Bilateral MG 3D screening mammo w/cad, [facility]. 01/03/2024 Bilateral MG 3D screening mammo w/cad, [facility]. Tissue Density: There are scattered areas of fibroglandular density. Findings: Analyzed By CAD. Right breast biopsy clip. Right breast: There is no suspicious group of microcalcifications or new suspicious mass. Benign-appearing calcifications right breast. Left breast: There is no suspicious group of microcalcifications or new suspicious mass. Benign-appearing calcifications left breast. Overall Assessment: Benign, BI-RAD 2 Management: Screening Mammogram of both breasts in [address] [facility] will attempt to contact patient to return for supplemental views and ultrasound if indicated. Patient should continue monthly self-breast exams. A clinical breast exam by your physician is recommended on an annual basis. This exam should not preclude additional follow-up of suspicious palpable abnormalities. Note on Viki scores and lifetime risk: 1. A Viki score greater than 3% is considered moderate risk. If this is the case, consider specialist referral to assess eligibility for a risk reducing agent. 2. If overall lifetime risk for the development of breast cancer is 20% or higher, the patient may qualify for future screening with alternating mammogram and breast MRI. [facility], , 01/25/2025 7:59 AM. Electronically signed and approved by: Tin Pinon DO
== END | disposition home or self-care (01) ==
LOC: RADMAMWWP 15:34
PROVIDERS: ATTEND Family Medicine
DX: Z12.31 Encounter for screening mammogram for malignant neoplasm of breast (principal); R92.323 Mammographic fibroglandular density, bilateral breasts; R92.1 Mammographic calcification found on diagnostic imaging of breast; Z92.0 Personal history of contraception; Z80.3 Family history of malignant neoplasm of breast; Z78.0 Asymptomatic menopausal state
CPT/HCPCS: 77063; 77067